=== PATIENT | male | born 1995 | race Caucasian/White ===

== ENCOUNTER 2017-10-21 20:15 | Emergency (ER) | payer SELFPAY ==
[2017-10-21] MEDS ORDERED: Azithromycin 250 MG Tab PO STA (20:22)
[2017-10-21] MEDS ORDERED: cefTRIAXone 250 MG in Lidocaine 1% 1 ML IM ONE (20:22)
--- NOTE | 2017-10-21 20:32 | EDM.PDOC ---
ED HPI GENERAL MEDICAL PROBLEM - General Chief Complaint: Genitourinary Problem Stated Complaint: MALE PROBLEM Time Seen by Provider: 10/21/17 20:23 Source of Information: Reports: Patient History Limitations: Reports: No Limitations - History of Present Illness INITIAL COMMENTS - FREE TEXT/NARRATIVE: HISTORY AND PHYSICAL: History of present illness: Patient is a 22-year-old male who presents to the emergency room today with concerns of an STD. He states couple days ago he was having protected sex but during that time had notice the condom had came off. 1-2 days after that sexual encounter he noticed some redness to the tip of his meatus and has discolored semen. He does not have any dysuria, testicular pain or swelling, change in bowel pattern. Review of systems: As per history of present illness and below otherwise all systems reviewed and negative. Past medical history: As per history of present illness and as reviewed below otherwise noncontributory. Surgical history: As per history of present illness and as reviewed below otherwise noncontributory. Social history: No reported history of drug or alcohol abuse. Family history: As per history of present illness and as reviewed below otherwise noncontributory. Physical exam: General: Well-developed and well-nourished 22-year-old male. Alert and oriented. Nontoxic appearing and in no acute distress. HEENT: Atraumatic, normocephalic, pupils equal and reactive bilaterally, negative for conjunctival pallor or scleral icterus, mucous membranes moist, throat clear, neck supple, nontender, trachea midline. No drooling or trismus noted. No meningeal signs Lungs: Clear to auscultation, breath sounds equal bilaterally, chest nontender. Heart: S1S2, regular rate and rhythm without overt murmur Abdomen: Soft, nondistended, nontender. Negative for masses or hepatosplenomegaly. Negative for costovertebral tenderness. Pelvis: Stable nontender. Genitourinary: This was done with consent and a credit risk specialist at the bedside. There does appear to be a small 1 cm circular area of erythema to the distal meatus, nonraised. Appears irritated. No lesions or bumps noted. Rectal: Deferred. Skin: See genitourinary assessment. Otherwise skin is Intact, warm, dry. No lesions or rashes noted. Extremities: Atraumatic, negative for cords or calf pain. Neurovascular unremarkable. Neuro: Awake, alert, oriented. Cranial nerves II through XII unremarkable. Cerebellum unremarkable. Motor and sensory unremarkable throughout. Exam nonfocal. Notes: Gonorrhea and chlamydia as a send out. We'll treat with Rocephin and azithromycin. Thorough education was reviewed and discussed. He voices understanding and is agreeable to plan of care. Diagnostics: Gonorrhea/chlamydia Therapeutics: [] Impression: STD screening Plan: 1. Please continue with safe sex practices. 2. You have received 1 g of azithromycin and 250 mg of Rocephin. 3. As we discussed you have not been tested for all STDs, if you wish to have more testing done please follow-up with your primary care provider or [facility]. 4. Follow-up with your primary care provider in the next 1-2 days. Return to the ED as needed and as discussed. Definitive disposition and diagnosis as appropriate pending reevaluation and review of above. Duration: Day(s): - Related Data Allergies Allergy/AdvReac Type Severity Reaction Status Date / Time No Known Allergies Allergy Verified 10/21/17 20:22 Home Meds: Home Meds . [No Known Home Meds] 10/21/17 [History] Past Medical History - Past Health History Medical/Surgical History: Denies Medical/Surgical History Social & Family History - Tobacco Use Smoking Status *Q: Never Smoker ED ROS GENERAL - Review of Systems Review Of Systems: ROS reveals no pertinent complaints other than HPI. ED EXAM, RENAL/ - Physical Exam Exam: See Below (See dictation) Course - Vital Signs Last Recorded V/S: Last Vital Signs Temp 97.8 F 10/21/17 20:20 Pulse 61 10/21/17 20:20 Resp 18 10/21/17 20:20 BP 125/75 10/21/17 20:20 Pulse Ox 99 10/21/17 20:20 - Orders/Labs/Meds Orders: Active Orders 24 hr Category Date Time Status CHLAMYDIA AND GONORRHEA BY TMA Stat Lab 10/21/17 20:21 Ordered Azithromycin [Zithromax] Med 10/21/17 20:22 Stat 1,000 mg PO NOW STA cefTRIAXone [Rocephin] 250 mg Med 10/21/17 20:22 Ordered Lidocaine 1% [Xylocaine-MPF 1%] 1 ml IM ONETIME Medication Orders Azithromycin (Zithromax) 1,000 mg PO NOW STA Stop: 10/21/17 20:23 Ceftriaxone Sodium 250 mg/ (Lidocaine HCl) 1 mls @ 1 mls/sec IM ONETIME ONE Stop: 10/21/17 20:23 Meds: Medications Generic Name Dose Route Start Last Admin Trade Name Hayde PRN Reason Stop Dose Admin Azithromycin 1,000 mg 10/21/17 20:22 Zithromax PO 10/21/17 20:23 NOW STA Ceftriaxone Sodium 250 mg/ 1 mls @ 1 mls/sec 10/21/17 20:22 Lidocaine HCl IM 10/21/17 20:23 ONETIME ONE Departure - Departure Time of Disposition: 20:32 Disposition: Home, Self-Care 01 Clinical Impression: Screening for STD (sexually transmitted disease) - Discharge Information Instructions: Sexually Transmitted Disease, [id number] Additional Instructions: The following information is given to patients seen in the emergency department who are being discharged to home. This information is to outline your options for follow-up care. We provide all patients seen in our emergency department with a follow-up referral. The need for follow-up, as well as the timing and circumstances, are variable depending upon the specifics of your emergency department visit. If you don't have a primary care physician on staff, we will provide you with a referral. We always advise you to contact your personal physician following an emergency department visit to inform them of the circumstance of the visit and for follow-up with them and/or the need for any referrals to a consulting specialist. The emergency department will also refer you to a specialist when appropriate. This referral assures that you have the opportunity for follow-up care with a specialist. All of these measure are taken in an effort to provide you with optimal care, which includes your follow-up. Under all circumstances we always encourage you to contact your private physician who remains a resource for coordinating your care. When calling for follow-up care, please make the office aware that this follow-up is from your recent emergency room visit. If for any reason you are refused follow-up, please contact the [facility] Emergency Department at and asked to speak to the emergency department charge nurse. [facility] [address] [place] [phone] 1. Please continue with safe sex practices. 2. You have received 1 g of azithromycin and 250 mg of Rocephin. 3. As we discussed you have not been tested for all STDs, if you wish to have more testing done please follow-up with your primary care provider or [facility]. 4. Follow-up with your primary care provider in the next 1-2 days. Return to the ED as needed and as discussed. - My Orders Last 24 Hours: My Active Orders 10/21/17 20:21 CHLAMYDIA AND GONORRHEA BY TMA Stat 10/21/17 20:22 Azithromycin [Zithromax] 1,000 mg PO NOW STA cefTRIAXone [Rocephin] 250 mg Lidocaine 1% [Xylocaine-MPF 1%] 1 ml IM ONETIME - Assessment/Plan Last 24 Hours: My Active Orders 10/21/17 20:21 CHLAMYDIA AND GONORRHEA BY TMA Stat 10/21/17 20:22 Azithromycin [Zithromax] 1,000 mg PO NOW STA cefTRIAXone [Rocephin] 250 mg Lidocaine 1% [Xylocaine-MPF 1%] 1 ml IM ONETIME
== END 2017-10-21 21:07 | disposition home or self-care (01) ==
LOC: MW.ED 20:15
DX: Z11.3 Encounter for screening for infections with a predominantly sexual mode of transmission (principal)
CPT/HCPCS: 87491; 87591; 96372; 99283; A9270; J0696; J2001

== ENCOUNTER 2022-01-20 01:15 | Emergency (ER) | payer SELFPAY ==
[2022-01-20] MEDS ORDERED: Sodium Chloride 0.9% 1,000 ML IV ONE (01:30)
[2022-01-20] MEDS ORDERED: LORazepam 2 MG/ML SDV IV ONE ×2 (01:35→02:45)
[2022-01-20] MEDS ORDERED: Ketorolac 30 MG/ML SDV IVPUSH ONE (01:35)
[2022-01-20] MEDS ORDERED: Sodium Chloride 0.45% 1,000 ML IV ONE (02:45)
[2022-01-20] MEDS ORDERED: Potassium Chloride 20 MEQ Tab.ER PO ONE (02:45)
[2022-01-20] MEDS ORDERED: Potassium Chloride 100 ML IV ONE ×2 (02:45)
[2022-01-20] MEDS ORDERED: Magnesium Sulfate/Water 50 ML IV ONE (03:30)
[2022-01-20] MEDS ORDERED: Ibuprofen 600 MG Tab PO ONE (05:30)
== END 2022-01-21 05:20 | disposition home or self-care (01) ==
LOC: MW.ED 01:15
DX: S81.011A Laceration without foreign body, right knee, initial encounter (principal); F10.239 Alcohol dependence with withdrawal, unspecified; W10.9XXA Fall (on) (from) unspecified stairs and steps, initial encounter
CPT/HCPCS: 70450; 70486; 71045; 72125; 73562; 96365; 96366; 96367; 96368; 96375; 96376; 99285; A9270; J0690; J1885; J2060; J3475; J3480; J7030; 99284